=== PATIENT | male | born 2000 | race Caucasian/White ===

== ENCOUNTER 2019-04-23 06:45 | Emergency (ER) | payer OTHER ==
[~2019-04-23] VITALS: Ht 185.4 cm; Wt 81.8 kg
[2019-04-23 06:46] VITALS: BP 131/70
[2019-04-23 08:26] LABS: BASO % 0.3 % (0.0-1.0); EOS % 0.3 % (0.0-3.0); HEMATOCRIT 46.1 % (42.0-52.0); HEMOGLOBIN 16.1 g/dl (13.5-17.5); LYMPH # 0.8 10^3/uL (1.5-6.5); LYMPH % 6.7 % (24.0-44.0); MEAN CORPUSCULAR HEMOGLOBIN 33.4 pg (27.0-33.0); MEAN CORPUSCULAR HGB CONC 34.9 g/dl (32.0-36.5); MEAN CORPUSCULAR VOLUME 95.6 fl (80.0-96.0); MONO # 1.4 10^3/uL (0.0-0.8); NEUTROPHILS # 9.5 10^3/uL (1.8-7.7); NEUTROPHILS % 80.2 % (36.0-66.0); PLATELET COUNT, AUTOMATED 223 10^3/uL (150-450); RED BLOOD COUNT 4.82 10^6/uL (4.30-6.10); WHITE BLOOD COUNT 11.8 10^3/uL (4.0-10.0)
[2019-04-23] MEDS ORDERED: IBUPROFEN 600 MG TAB PO ONE (09:00)
[2019-04-23 09:01] LABS: ALBUMIN 4.3 GM/DL (3.2-5.2); ALT/SGPT 21 U/L (12-78); BILIRUBIN,DIRECT 0.2 MG/DL (0.0-0.2); MONO REFLEX EBV COMP NEGATIVE (NEGATIVE); TOTAL PROTEIN 7.7 GM/DL (6.4-8.2)
[2019-04-23] MEDS ORDERED: PENI500T PO (09:33)
[2019-04-24 14:24] LABS: EBV AB TO NUCLEAR ANTIGEN 82.4 U/mL (0.0-17.9); EBV VIRAL CAPSID AG IgM <36.0 U/mL (0.0-35.9)
== END 2019-04-23 09:54 | disposition home or self-care (01) ==
LOC: M ED 06:45
DX: J03.90 Acute tonsillitis, unspecified (principal); F17.210 Nicotine dependence, cigarettes, uncomplicated